=== PATIENT | male | born 1995 | race Caucasian/White ===

== ENCOUNTER 2020-04-02 02:23 | Emergency (ER) | payer MEDICAID ==
[~2020-04-02] VITALS: Ht 170.2 cm; Wt 67.1 kg
--- NOTE | 2020-04-02 02:33 | NUR ---
Patient triaged and placed in the tent. VSS and patient appears in no acute distress at this time. Accompanied by fam member, awaiting available bed, and MD notified of need for MSE.
[2020-04-02 02:35] VITALS: BP_SYST 128
--- NOTE | 2020-04-02 02:35 | NUR ---
ER examining patient in the tent.
--- NOTE | 2020-04-02 03:10 | NUR ---
Patient given written and verbal discharge instructions by dr Bowie and verbalizes understanding. ER MD discussed with patient the results and treatment provided. Patient in stable condition. ID arm band removed. Rx of dexamethasone,Azithromycin given. Patient educated on pain management and to follow up with PMD. Pain Scale 6/10. Opportunity for questions provided and answered. Medication side effect fact sheet provided.
[2020-04-02 03:16] VITALS: BP_SYST 121
== END 2020-04-02 03:16 | disposition home or self-care (01) ==
LOC: SED 02:23
DX: J40 Bronchitis, not specified as acute or chronic (principal)
CPT/HCPCS: 99283

== ENCOUNTER 2020-10-04 03:06 | Emergency (ER) | payer MEDICAID, SELFPAY ==
[~2020-10-04] VITALS: Ht 170.2 cm; Wt 80.7 kg
[2020-10-04 03:10] VITALS: BP_SYST 128
[2020-10-04 03:47] LABS: BASOPHILS # (AUTO) 0.1 K/uL (0.0-0.2); BASOPHILS % (AUTO) 0.7 % (0.0-2.0); EOSINOPHILS # (AUTO) 0.5 K/uL (0.0-0.4); EOSINOPHILS % (AUTO) 4.5 % (0.0-4.0); HEMATOCRIT 41.5 % (36-54); HEMOGLOBIN 13.1 g/dL (14.0-18.0); LYMPHOCYTES # (AUTO) 4.4 K/uL (1.0-5.5); MEAN CORPUSCULAR HEMOGLOBIN 20 pg (27-31); MEAN CORPUSCULAR HGB CONC 32 % (32-36); MEAN CORPUSCULAR VOLUME 63 fL (79.0-98.0); MONOCYTES % (AUTO) 9.1 % (1.7-9.3); NEUTROPHILS % (AUTO) 45.7 % (40.0-70.0); PLATELET COUNT (AUTO) 167 K/uL (130-430); RED BLOOD CELL COUNT(AUTO) 6.54 MIL/uL (4.2-6.2); RED CELL DISTRIBUTION WIDTH 14.9 % (9.0-15.0); WHITE BLOOD COUNT (AUTO) 10.9 K/uL (4.8-10.8)
[2020-10-04 03:53] LABS: BILIRUBIN,URINE NEGATIVE (NEGATIVE); BLOOD, URINE NEGATIVE (NEGATIVE); CLARITY/URINE CLEAR (CLEAR); COLOR,URINE YELLOW (YELLOW); GLUCOSE,URINE NEGATIVE (NEGATIVE); KETONES,URINE NEGATIVE (NEGATIVE); LEUKOCYTE ESTERASE ,URINE NEGATIVE (NEGATIVE); NITRITE, URINE NEGATIVE (NEGATIVE); PH,URINE 6.5 (5.0-8.0); PROTEIN URINE NEGATIVE (NEGATIVE); UROBILINOGEN,URINE 0.2 (0.2-1.0)
[2020-10-04 04:01] LABS: CALCIUM 8.5 mg/dL (8.4-11.0); CREATININE 1.14 mg/dL (0.55-1.30); POTASSIUM 3.7 mmol/L (3.5-5.1)
[2020-10-04 04:06] LABS: INR 0.9 (0.80-1.20); PROTHROMBIN TIME 9.2 SECS (9.5-12.5)
[2020-10-04 04:07] LABS: ALBUMIN 3.4 g/dL (3.4-4.8); TOTAL BILIRUBIN 0.1 mg/dL (0.0-1.0)
[2020-10-04] MEDS ORDERED: AZITHROMYCIN 250 MG TABLET PO ONE (05:00)
[2020-10-04] MEDS ORDERED: ZIT250 PO (05:08)
[2020-10-04 05:12] VITALS: BP_SYST 128
== END 2020-10-04 05:12 | disposition home or self-care (01) ==
LOC: SED 03:06
DX: J18.9 Pneumonia, unspecified organism (principal); R07.89 Other chest pain; Z20.822 Contact with and (suspected) exposure to COVID-19
CPT/HCPCS: 36415; 71045; 80053; 81003; 82550; 83880; 84484; 85025; 85379; 85610; 87426; 93005; 99285; Q0144

== ENCOUNTER 2021-04-28 09:46 | Emergency (ER) | payer MEDICAID, SELFPAY ==
[~2021-04-28] VITALS: Ht 170.2 cm; Wt 81.6 kg
[~2021-04-28 09:46] MED LIST: ZIT250 PO
--- NOTE | 2021-04-28 09:55 | NUR ---
Pt to bed 8 for evaluation.
[2021-04-28 09:57] VITALS: BP_SYST 132
--- NOTE | 2021-04-28 09:57 | NUR ---
Pt AAO and ambulatory reporting nausea and 4 episodes of vomiting x 8 hours. Pt reports that he is unvaccinated from Covid and is feeling fatigued today. Pt reports body aches and rates pain 6/10 on pain scale. Pt denies any prior medical history. Pt is noted to be in no distress with stable v/s.
--- NOTE | 2021-04-28 10:05 | NUR ---
Dr. Kelly at bedside to assess.
[2021-04-28] MEDS ORDERED: LOPE2CAP PO (10:09)
[2021-04-28] MEDS ORDERED: ONDA4TAB5 PO (10:09)
[2021-04-28] MEDS ORDERED: ONDANSETRON 4 MG ODT TAB PO ONE (10:15)
[2021-04-28] MEDS ORDERED: LOPERAMIDE HCL 2 MG CAPSULE PO ONE (10:15)
[2021-04-28 10:32] VITALS: BP_SYST 132
--- NOTE | 2021-04-28 10:33 | NUR ---
Patient given written and verbal discharge instructions and verbalizes understanding. ER MD discussed with patient the results and treatment provided. Patient in stable condition. ID arm band removed. Rx of ZOFRAN AND IMMODIUM given. Patient educated on pain management and to follow up with PMD. Pain Scale 0/10. Opportunity for questions provided and answered. Medication side effect fact sheet provided.
== END 2021-04-28 10:33 | disposition home or self-care (01) ==
LOC: SED 09:46
DX: R11.2 Nausea with vomiting, unspecified (principal); R19.7 Diarrhea, unspecified; Z20.828 Contact with and (suspected) exposure to other viral communicable diseases
CPT/HCPCS: 99283; Q0162; U0003; C9803

== ENCOUNTER 2021-05-11 17:35 | Emergency (ER) | payer MEDICAID, SELFPAY ==
[~2021-05-11] VITALS: Ht 170.2 cm; Wt 79.4 kg
[~2021-05-11 17:35] MED LIST changes: +LOPE2CAP PO; +ONDA4TAB5 PO
[2021-05-11 17:45] VITALS: BP_SYST 75
--- NOTE | 2021-05-11 17:46 | NUR ---
Pt came to ER stating he feels week with blurred vision, pale , and diaphoretic. Pt stated he donated plasma and sfter he started having these symptoms. 20g placed on Right AC with 1000ml NS running bolus. Accucheck done and results were 121.
--- NOTE | 2021-05-11 17:48 | NUR ---
Vitals are stable.
--- NOTE | 2021-05-11 17:48 | NUR ---
ER physician at bedside. and EKG being done at bedside.
[2021-05-11] MEDS ORDERED: ASPIRIN 81 MG TAB.CHEW PO ONE (18:00)
[2021-05-11] MEDS ORDERED: NACL 0.9% 1,000 ML IV ONE ×2 (18:00→19:30)
--- NOTE | 2021-05-11 18:15 | NUR ---
Aspirin 81mg chewable given to pt. Pt states he feels better, Pt is not diaphoretic anymore and skin is pink and warm. Significant other at bedside.
[2021-05-11 18:29] LABS: BASOPHILS # (AUTO) 0.1 K/uL (0.0-0.2); BASOPHILS % (AUTO) 0.5 % (0.0-2.0); EOSINOPHILS # (AUTO) 0.3 K/uL (0.0-0.4); HEMATOCRIT 46.8 % (36-54); HEMOGLOBIN 14.7 g/dL (14.0-18.0); LYMPHOCYTES % (AUTO) 36.4 % (20.5-51.5); MEAN CORPUSCULAR HEMOGLOBIN 20 pg (27-31); MEAN CORPUSCULAR HGB CONC 32 % (32-36); MEAN CORPUSCULAR VOLUME 63 fL (79.0-98.0); MONOCYTES # (AUTO) 1.1 K/uL (0.0-1.0); MONOCYTES % (AUTO) 9.8 % (1.7-9.3); NEUTROPHILS # (AUTO) 5.5 K/uL (1.8-7.7); NEUTROPHILS % (AUTO) 50.3 % (40.0-70.0); PLATELET COUNT (AUTO) 247 K/uL (130-430); RED BLOOD CELL COUNT(AUTO) 7.48 MIL/uL (4.2-6.2); RED CELL DISTRIBUTION WIDTH 15.4 % (9.0-15.0)
[2021-05-11 18:31] LABS: CALCIUM 7.3 mg/dL (8.4-11.0); CREATININE 1.06 mg/dL (0.55-1.30); POTASSIUM 3.2 mmol/L (3.5-5.1)
[2021-05-11 18:40] LABS: TOTAL BILIRUBIN 0.4 mg/dL (0.0-1.0)
[2021-05-11 19:02] LABS: ALBUMIN 2.6 g/dL (3.4-4.8)
--- NOTE | 2021-05-11 20:30 | NUR ---
in bed, comfortable, denies any needs at this time, denies any discomfort.
[2021-05-11] MEDS ORDERED: POTASSIUM CHLORIDE 20 MEQ TAB.PRT.SR PO ONE (21:30)
--- NOTE | 2021-05-11 22:30 | NUR ---
Patient given written and verbal discharge instructions and verbalizes understanding. ER MD discussed with patient the results and treatment provided. Patient in stable condition. ID arm band removed. IV catheter removed intact and dressing applied, no active bleeding. Rx of given. Patient educated on pain management and to follow up with PMD. Pain Scale . Opportunity for questions provided and answered. Medication side effect fact sheet provided.
[2021-05-11 22:47] VITALS: BP_SYST 110
[2021-05-12] MEDS ORDERED: ONDA-8 TL (05:46)
== END 2021-05-11 22:30 | disposition home or self-care (01) ==
LOC: SED 17:35
DX: E87.6 Hypokalemia (principal); R55 Syncope and collapse; E83.51 Hypocalcemia; I10 Essential (primary) hypertension
CPT/HCPCS: 36415; 71045; 80053; 84484; 85025; 93005; 99285

== ENCOUNTER 2021-05-11 23:47 | Emergency (ER) | payer MEDICAID, SELFPAY ==
[~2021-05-11] VITALS: Ht 170.2 cm; Wt 79.4 kg
[2021-05-12 00:04] VITALS: BP_SYST 99
--- NOTE | 2021-05-12 00:10 | NUR ---
Patient triaged and placed in waiting room. VS checked and patient appears in no acute distress at this time. Accompanied by girlfriend, awaiting available bed, and MD notified of need for MSE.
--- NOTE | 2021-05-12 04:20 | NUR ---
ER in triage examining patient.
[2021-05-12] MEDS ORDERED: DIPHENHYDRAMINE INJ 50 MG/ML VIAL IVP ONE (04:30)
[2021-05-12] MEDS ORDERED: NACL 0.9% 1,000 ML IV ONE (04:30)
[2021-05-12] MEDS ORDERED: CALCIUM CHLORIDE 1 GM in NS 100 ML IV ONE (04:30)
[2021-05-12] MEDS ORDERED: METOCLOPRAMIDE HCL 10 MG/2 ML VIAL IVP ONE (04:30)
--- NOTE | 2021-05-12 04:45 | NUR ---
Pt BIB family returning to ED on same day, C/O generalized weakness. after donating Plasma today. No other complaints noted, VSS no s/s of acute distress Resting on ED waiting room chair
--- NOTE | 2021-05-12 05:19 | NUR ---
Pt received IVF + meds in ED waiting area, well tolerated
[2021-05-12] MEDS ORDERED: ONDA-8 TL (05:46)
[2021-05-12 06:00] VITALS: BP_SYST 99
--- NOTE | 2021-05-12 06:00 | NUR ---
Patient given written and verbal discharge instructions and verbalizes understanding. ER MD discussed with patient the results and treatment provided. Patient in stable condition. ID arm band removed. IV catheter removed intact and dressing applied, no active bleeding. Rx of Zofran given. Patient educated on pain management and to follow up with PMD. Pain Scale 0/10 Opportunity for questions provided and answered. Medication side effect fact sheet provided.
== END 2021-05-12 06:00 | disposition home or self-care (01) ==
LOC: SED 23:47
DX: E83.51 Hypocalcemia (principal)
CPT/HCPCS: 96365; 96375; 99284; J1200; J2765

== ENCOUNTER 2021-08-27 09:05 | Emergency (ER) | payer MEDICAID ==
[~2021-08-27] VITALS: Ht 170.2 cm; Wt 77.1 kg
[~2021-08-27 09:05] MED LIST changes: +ONDA-8 TL
[2021-08-27 09:06] VITALS: BP_SYST 119
[2021-08-27 12:30] VITALS: BP_SYST 119
== END 2021-08-27 12:30 | disposition home or self-care (01) ==
LOC: SED 09:05
DX: A09 Infectious gastroenteritis and colitis, unspecified (principal); R07.89 Other chest pain; J40 Bronchitis, not specified as acute or chronic; Z79.899 Other long term (current) drug therapy
CPT/HCPCS: 71045; 99283